=== PATIENT | male | born 1965 | race Caucasian/White ===

== ENCOUNTER 2019-01-22 14:30 | Emergency (ER) | payer SELFPAY ==
[2019-01-22] MEDS ORDERED: NORMAL SALINE 1000 ML 1,000 ML IV ONE ×2 (14:38→17:46)
--- NOTE | 2019-01-22 14:38 | ER Document Report ---
ED Medical Screen (RME) - General Chief Complaint: Chest Pain Stated Complaint: CHEST PAIN Time Seen by Provider: 01/22/19 14:35 Mode of Arrival: Ambulatory Information source: Patient Notes: 53-year-old male presented to ED for complaint of severe chest pain substernal. He states he started with abdominal pain last night it was very sharp.. He states the only medical history he has a high blood pressure cholesterol and a heart attack. He states he does drink heavily every day. He states he does not smoke or use any drugs. He does have severe tenderness to the epigastric area of. I have ordered labs x-ray EKG and n.p.o. I have also ordered IV fluids as his assessment is consistent with pancreatitis. Patient does have severe tenderness to the epigastric area no pain to the right upper quadrant. I have greeted and performed a rapid initial assessment of this patient. A comprehensive ED assessment and evaluation of the patient, analysis of test results and completion of medical decision making process will be conducted by an additional ED providers.
[2019-01-22] MEDS ORDERED: ASPIRIN 81 MG TABLET, CHEWABLE PO ONE (14:52)
--- NOTE | 2019-01-22 15:43 | RADIOLOGY REPORT (SQ) ---
EXAM DESCRIPTION: CHEST 2 VIEWS COMPLETED DATE/TIME: 01/22/2019 3:33 pm REASON FOR STUDY: Chest pain COMPARISON: None. EXAM PARAMETERS: NUMBER OF VIEWS: two views TECHNIQUE: Digital Frontal and Lateral radiographic views of the chest acquired. RADIATION DOSE: NA LIMITATIONS: none FINDINGS: LUNGS AND PLEURA: No opacities, masses or pneumothorax. No pleural effusion. MEDIASTINUM AND HILAR STRUCTURES: No masses or contour abnormalities. HEART AND VASCULAR STRUCTURES: Heart normal size. No evidence for failure. BONES: No acute findings. HARDWARE: None in the chest. OTHER: No other significant finding. IMPRESSION: NO ACUTE RADIOGRAPHIC FINDING IN THE CHEST. TECHNICAL DOCUMENTATION: JOB ID: [id number] [employer] All Rights Reserved Reading location - IP/workstation name: [email or web address]
[2019-01-22 15:45] LABS: ABSOLUTE BASOPHILS # (AUTO) 0.1 10^3/uL (0.0-0.2); ABSOLUTE EOSINOPHILS # (AUTO) 0.1 10^3/uL (0.0-0.6); ABSOLUTE LYMPHOCYTES (AUTO) 1.4 10^3/uL (0.5-4.7); ABSOLUTE MONOCYTES (AUTO) 0.9 10^3/uL (0.1-1.4); ABSOLUTE NEUT (AUTO) 9.6 10^3/uL (1.7-8.2); BASOPHILS % (AUTO) 0.5 % (0-2); EOSINOPHILS % (AUTO) 1.1 % (0-6); HEMATOCRIT 47.6 % (37.9-51.0); HEMOGLOBIN 16.6 g/dL (13.5-17.0); LYMPHOCYTES % (AUTO) 11.5 % (13-45); MEAN CORPUSCULAR HEMOGLOBIN 31.7 pg (27.0-33.4); MEAN CORPUSCULAR HGB CONC 34.9 g/dL (32.0-36.0); MEAN CORPUSCULAR VOLUME 91 fl (80-97); MONOCYTES % (AUTO) 7.4 % (3-13); PLATELET COUNT 165 10^3/uL (150-450); RED BLOOD COUNT 5.24 10^6/uL (4.35-5.55); RED CELL DISTRIBUTION WIDTH 12.7 % (11.5-14.0); SEGMENTED NEUTROPHILS % (AUTO) 79.5 % (42-78); TOTAL CELLS COUNTED % (AUTO) 100 %
[2019-01-22 16:08] LABS: ALBUMIN 4.7 g/dL (3.5-5.0); ALKALINE PHOSPHATASE 101 U/L (38-126); ANION GAP 18 (5-19); ASPARTATE AMINO TRANSFERASE 23 U/L (17-59); BILIRUBIN,DIRECT 0.3 mg/dL (0.0-0.4); BILIRUBIN,TOTAL 1.4 mg/dL (0.2-1.3); BLOOD UREA NITROGEN 14 mg/dL (7-20); CARBON DIOXIDE 18 mmol/L (22-30); CHLORIDE 104 mmol/L (98-107); GLUCOSE 282 mg/dL (75-110); POTASSIUM 4.3 mmol/L (3.6-5.0); TOTAL PROTEIN 8.4 g/dL (6.3-8.2)
[2019-01-22 16:10] LABS: ALCOHOL < 10 mg/dL (NONE DETECTED)
[2019-01-22] MEDS ORDERED: MORPHINE SULFATE 10 MG/ML INJ IV ONE ×4 (16:38→18:34)
[2019-01-22] MEDS ORDERED: ONDANSETRON HCL INJ/PF 4 MG/2 ML SDV IV ONE (16:38)
[2019-01-22 17:01] LABS: APPEARANCE,URINE CLEAR; BILIRUBIN,URINE NEGATIVE (NEGATIVE); COLOR,URINE YELLOW; GLUCOSE, URINE >=500 mg/dL (NEGATIVE); KETONES,URINE 80 mg/dL (NEGATIVE); PROTEIN,URINE 100 mg/dL (NEGATIVE); URINE SPECIFIC GRAVITY 1.027; UROBILINOGEN,URINE NEGATIVE mg/dL (<2.0)
[2019-01-22 17:22] LABS: URINE AMPHETAMINES SCREEN NEGATIVE; URINE BARBITURATES SCREEN NEGATIVE; URINE BENZODIAZEPINES SCREEN NEGATIVE; URINE COCAINE SCREEN NEGATIVE; URINE MARIJUANA (THC) SCREEN NEGATIVE; URINE METHADONE SCREEN NEGATIVE; URINE PHENCYCLIDINE SCREEN NEGATIVE
--- NOTE | 2019-01-22 17:52 | ER Document Report ---
ED General - General Chief Complaint: Chest Pain Stated Complaint: CHEST PAIN Time Seen by Provider: 01/22/19 14:35 Mode of Arrival: Ambulatory Information source: Patient TRAVEL OUTSIDE OF THE [place] IN LAST 30 DAYS: No - HPI Notes: Patient complains of severe abdominal pain. He states that started earlier this morning. He states it has progressed throughout the day. It is now constant and severe. Nothing makes it better or worse. He states is unable to find a comfortable position. He has had nausea and vomiting as well. He has had no problems with urine or stool. He had no previous similar pains. He states he did have a myocardial infarction approximate 20 years ago but this does not feel similar. He does state the pain radiates into his chest. No shortness of breath. No cough cold or congestion. No rashes. The pain is a sharp pain. - Related Data Allergies/Adverse Reactions: No Known Allergies Allergy (Unverified 01/22/19 14:56) Past Medical History - General Information source: Patient - Social History Smoking Status: Current Every Day Smoker Chew tobacco use (# tins/day): No Frequency of alcohol use: Heavy Drug Abuse: None Family History: Reviewed & Not Pertinent Patient has suicidal ideation: No Patient has homicidal ideation: No - Past Medical History Cardiac Medical History: Reports: Hx Heart Attack Review of Systems - Review of Systems Constitutional: Malaise. denies: Chills, Fever Cardiovascular: Chest pain. denies: Palpitations Respiratory: denies: Cough, Short of breath -: Yes All other systems reviewed and negative Physical Exam - Vital signs Vitals: Temp Pulse Resp BP Pulse Ox 97.8 F 71 18 182/95 H 95 01/22/19 14:56 01/22/19 14:56 01/22/19 14:56 01/22/19 14:56 01/22/19 14:56 Interpretation: Hypertensive - General General appearance: Appears well, Alert In distress: Mild - in pain - HEENT Head: Normocephalic, Atraumatic Eyes: Normal Pupils: PERRL - Respiratory Respiratory status: No respiratory distress Chest status: Nontender Breath sounds: Normal Chest palpation: Normal - Cardiovascular Rhythm: Regular Heart sounds: Normal auscultation Murmur: No - Abdominal Inspection: Normal Distension: No distension Bowel sounds: Normal Tenderness: Tender - Moderate pain to palpation in the epigastric area. No rebound or guarding. Organomegaly: No organomegaly - Back Back: Normal, Nontender - Extremities General upper extremity: Normal inspection, Nontender, Normal color, Normal ROM, Normal temperature General lower extremity: Normal inspection, Nontender, Normal color, Normal ROM, Normal temperature, Normal weight bearing. No: Tara's sign - Neurological Neuro grossly intact: Yes Cognition: Normal Orientation: AAOx4 [place] Coma Scale Eye Opening: Spontaneous [place] Coma Scale Verbal: Oriented [place] Coma Scale Motor: Obeys Commands [place] Coma Scale Total: 15 Speech: Normal Motor strength normal: LUE, RUE, LLE, RLE Sensory: Normal - Psychological Associated symptoms: Normal affect, Normal mood - Skin Skin Temperature: Warm Skin Moisture: Moist Skin Color: Normal Course - Re-evaluation Re-evalutation: 01/22/19 17:49 Patient presents with severe abdominal pain. He is somewhat diaphoretic but not tachycardic. He is unable to find a comfortable position. He points mainly to the upper abdomen as the source of pain. CT scan is consistent with a clot in the SMA. This would be consistent with a patient with early bowel ischemia and hence the patient's presentation. I have contacted my surgeon on-call who states he will see the patient as soon as possible but is currently in the case. I have now initiated a call to [facility] to try to speak to vascular surgery there to see if I can transfer the patient. I discussed medication such as antibiotics and heparin with the vascular surgeon as soon as I am able to contact them. In the meantime patient being given fluids and pain medication. I just spoke with Dr. Brewer at [facility]. This was at 6:25 PM. Patient has been accepted as an ER to ER transfer. A current weather check is being done to see if patient can go by helicopter. I have started heparin at the high dose protocol with a bolus. I have also given the patient 2 L of fluid and Zosyn. Patient at this time is become slightly tachycardic with a heart rate of 107. Blood pressure has been slightly elevated. Approximately in the 170s to 180s systolic. His O2 saturations are 94 to 95%. Patient is more comfortable than when he arrived. 01/22/19 18:27 - Vital Signs Vital signs: Temp Pulse Resp BP Pulse Ox 98.5 F 71 22 H 198/107 H 94 11/26/19 18:18 01/22/19 14:56 01/22/19 18:01 01/22/19 18:01 01/22/19 18:01 - Laboratory Result Diagrams: 01/22/19 15:18 01/22/19 15:18 Laboratory results interpreted by me: 01/22/19 01/22/19 01/22/19 15:18 15:18 16:50 WBC 12.0 H Lymph % (Auto) 11.5 L Absolute Neuts (auto) 9.6 H Seg Neutrophils % 79.5 H Carbon Dioxide 18 L Glucose 282 H Total Bilirubin 1.4 H Total Protein 8.4 H Urine Protein 100 H Urine Glucose (UA) >=500 H Urine Ketones 80 H Urine Blood SMALL H - Diagnostic Test Radiology reviewed: Image reviewed, Reports reviewed - EKG Interpretation by Me EKG shows normal: Sinus rhythm Rate: Normal - 86 Rhythm: NSR Voltage: Consistant with LVH Additional EKG results interpreted by me: 01/22/19 17:50 The EKG charted above was the second EKG. The first EKG was done at 1447. It shows a normal sinus rhythm with a rate of 68. It shows some biatrial abnormalities. It shows changes consistent with left ventricular hypertrophy. Patient has a normal axis. Patient has a normal sinus rhythm. Critical Care Note - Critical Care Note Total time excluding time spent on procedures (mins): 60 Comments: Approximately 60 minutes of critical care time were spent on this patient. This included multiple reexaminations. It included reviewing imaging. It included discussing with multiple consultants. It included reviewing labs. It included multiple reassessments of patient and discussion with patient and family. Discharge - Discharge Clinical Impression: Superior mesenteric artery stenosis Condition: Critical Disposition: [facility]
--- NOTE | 2019-01-22 17:56 | RADIOLOGY REPORT (SQ) ---
EXAM DESCRIPTION: CTA ABDOMEN/PELVIS W WO; CTA CHEST COMPLETED DATE/TIME: 01/22/2019 5:17 pm REASON FOR STUDY: severe chest/abd pain COMPARISON: AP chest 01/22/2019 CONTRAST TYPE AND DOSE: 80 mL of IV Omnipaque 350- low osmolar. RENAL FUNCTION: Creatinine 0.8 TECHNIQUE: CT angio of the chest performed using helical scanning technique with dynamic intravenous contrast injection. Images reviewed with lung, soft tissue and bone windows. Reconstructed maximum intensity projected images through the thoracic aorta and pulmonary arteries, additional coronal and sagittal MPR images reviewed. All images stored on PACS. CT angio of the abdomen and pelvis performed with intravenous and without oral contrastusing helical scanning technique with dynamic intravenous contrast injection. Images reviewed with lung, soft tiss ue and bone windows. Reconstructed coronal and sagittal MPR images reviewed. Delayed images for anabela luation of the urinary system also acquired and evaluated. Reconstructed maximum intensity projected images and sagittal and coronal reconstructions through the abdomen and pelvis. All images stored o n PACS. All CT scanners at this facility use dose modulation, iterative reconstruction, and/or weight based d osing when appropriate to reduce radiation dose to as low as reasonably achievable (ALARA). [facility]: Dose Right [facility]: CareDose [facility]: Dose Right [facility]: Teradose 4D [facility]: [employer] RADIATION DOSE: CT Rad equipment meets quality standard of care and radiation dose reduction techniq ues were employed. CTDIvol: 19.8 - 46.3 mGy. DLP: 3141 mGy-cm. . LIMITATIONS: None. FINDINGS: CHEST: LUNGS AND PLEURA: No dense consolidation worrisome for pneumonia. There is questionable interstitial pulmonary edema around the periphery of both lungs with thickened interlobular septa. No pleural ef fusions. Airways are patent. HILAR AND MEDIASTINAL STRUCTURES: No identified masses or abnormal nodes. HEART AND VASCULAR STRUCTURES: No aneurysm or dissection. No central pulmonary emboli. No pericardi al effusion. Minimal coronary artery calcification. HARDWARE: None. THYROID AND OTHER SOFT TISSUES: No masses. No adenopathy. BONES: No significant finding. OTHER: No other significant finding. ABDOMEN AND PELVIS: LIVER: Normal size. No masses. No dilated ducts. Diffuse low attenuation from fatty infiltration of the liver, sparing the gallbladder fossa SPLEEN: Normal size. No focal lesions. PANCREAS: No masses. No significant calcifications. No adjacent inflammation or peripancreatic fluid collections. Pancreatic duct not dilated. GALLBLADDER: No identified stones by CT criteria. No inflammatory changes to suggest cholecystitis. ADRENAL GLANDS: No significant masses or asymmetry. RIGHT KIDNEY AND URETER: No solid masses. No significant calcification. No hydronephrosis or hydroure ter. Chronic appearing focal cortical scarring in the upper pole right kidney. 2 cm right midpole r enal cortical cyst. LEFT KIDNEY AND URETER: No solid masses. No significant calcification. No hydronephrosis or hydrouret er. Multiple less than 2 cm left renal cortical cysts. AORTA AND VESSELS: There is a filling defect in the superior mesenteric artery causing subtotal occlu bunny, finding is worrisome for acute clot or extensive atherosclerosis causing high-grade SMA narrowi ng. This is best shown on axial series 4, image [id number] and sagittal reconstructions abdomen pelvis images 53 through 57. Finding was called to Dr Gutierrez in the emergency room as a critical finding, 1730 hours 01/22/2019. Remainder of the abdominal aorta and its major visceral branches are otherwise unremarkable aside fro m about 50% atherosclerotic narrowing right common iliac artery. RETROPERITONEUM: No retroperitoneal adenopathy, hemorrhage or masses. BOWEL AND PERITONEAL CAVITY: No masses or inflammatory changes. No free fluid or peritoneal masses. On axial image 22 through 195, there are small bowel loops which enhance to a lesser degree than left upper quadrant jejunal loops. Findings are worrisome for bowel ischemic change. No gross bowel wal l thickening or obstruction. APPENDIX: Normal. ABDOMINAL WALL: No masses. No hernias. PELVIS: No mass or free fluid. Normal bladder. BONES: No significant or acute findings. OTHER: No other significant finding. IMPRESSION: No CT angio evidence of acute pulmonary emboli or thoracic aortic dissection CT angio abdomen demonstrates subtotal occlusion of the proximal SMA, either by a E centric plaque or thrombus Small bowel loops in the right abdomen enhance to a lesser degree than left upper quadrant jejunal lo ops. Findings are worrisome for ischemic small bowel loops. No bowel wall thickening. No free air or free fluid. COMMENT: Pertinent findings on the imaging study reported as a CRITICAL RESULT to JAMILA White at17:30 on 01/22/2019. Category of Critical Result: Significant stenosis superior mesenteric artery by clot or atherosclerot ic change TECHNICAL DOCUMENTATION: JOB ID: [id number] Quality ID # [id number]: Final reports with documentation of one or more dose reduction techniques (e.g., Au tomated exposure control, adjustment of the mA and/or kV according to patient size, use of iterative reconstruction technique) 2010 [employer]- All Rights Reserved Reading location - IP/workstation name: [email or web address]
[2019-01-22] MEDS ORDERED: PIPERACILLIN/TAZOBACTAM 3.375 GM VIAL IV ONE (18:09)
[2019-01-22] MEDS ORDERED: HEPARIN SODIUM,PORCINE/D5W 250 ML IV PRN ×2 (18:10→18:31)
--- NOTE | 2019-01-22 18:14 | EKG REPORT ---
SEVERITY:- ABNORMAL ECG - SINUS RHYTHM RENUKA, CONSIDER BIATRIAL ABNORMALITIES LEFT VENTRICULAR HYPERTROPHY BORDERLINE INFERIOR Q WAVES PROLONGED QT INTERVAL CONSIDER ANTERIOR CT AGE INDETERMINATE : Confirmed by: Selma West 22-Jan-2019 18:13:23
--- NOTE | 2019-01-22 18:17 | EKG REPORT ---
SEVERITY:- ABNORMAL ECG - SINUS RHYTHM RIGHT ATRIAL ABNORMALITY NONSPECIFIC INTRAVENTRICULAR CONDUCTION DELAY PROBABLE LEFT VENTRICULAR HYPERTROPHY BORDERLINE INFERIOR Q WAVES ANTERIOR Q WAVES, POSSIBLY DUE TO LVH : Confirmed by: Selma West 22-Jan-2019 18:16:52
[2019-01-22 18:27] LABS: INTERNATIONAL RATION (INR) 1.03; PROTHROMBIN TIME 13.5 SEC (11.4-15.4)
[2019-01-22 18:28] LABS: PARTIAL THROMBOPLASTIN TIME 27.8 SEC (23.5-35.8)
[2019-01-22] MEDS ORDERED: HEPARIN SOD (PORCINE) 1,000 UNIT/ML 10 ML VIAL IV ONE (18:31)
[2019-01-22] MEDS ORDERED: HEPARIN SODIUM,PORCINE/D5W 25,000 UNIT/250 ML RTUINJ IV PRN (18:35)
[2019-01-22 18:58] VITALS: BP 206/119
[2019-01-22] MEDS ORDERED: HEPARIN SOD (PORCINE) 1,000 UNIT/ML 10 ML VIAL IV PRN (19:00)
[2019-01-22] MEDS ORDERED: HYDROMORPHONE HCL INJ/PF 2 MG/ML AMPULE IV ONE (19:13)
== END 2019-01-22 19:27 | disposition short-term general hospital (02) ==
LOC: ER 14:30
DX: K55.1 Chronic vascular disorders of intestine (principal); R07.9 Chest pain, unspecified; R53.81 Other malaise; R11.2 Nausea with vomiting, unspecified; R10.9 Unspecified abdominal pain; I10 Essential (primary) hypertension; I25.2 Old myocardial infarction
CPT/HCPCS: 93005; 96376; 99291; 96361; 96375; 96365; 36415; 80307 ×2; 83690; 85025; 85610; 85730; 80053; 81001; 84484; 71046; 71275; 74174; 93010; J1644; J2270; J1170; J2405; J7030; J2543